=== PATIENT | female | born 1975 | race Caucasian/White ===

== ENCOUNTER 2016-10-22 09:00 | Inpatient (IN) | payer OTHER ==
--- NOTE | ~2016-10-22 | PA ---
Unit #: [id number] #: [id number] Patient: ROBERT DOOLEY [id number] [place] [address] [id number] MR#: [id number] NAME: ROBERT DOOLEY ROOM: [facility]6 Age: 40 Sex: F Admission Date: 10/22/2016 : 1975 Date of Assessment: Attending Physician: Bryson Willoughby M.D. Admitting Physician: Bryson Willoughby M.D. Primary Care Physician: Primary Care Physician No PSYCHIATRIC ASSESSMENT DATE OF SERVICE 10/22/2016. IDENTIFYING DATA Ms. Dooley is a 40-year-old single white female, who is a resident of [place], [place], and was transferred to us from [facility] on a 72 hours hold. CHIEF COMPLAINT "I'm not fucking answering anything, get that fucking straight." HISTORY OF PRESENT ILLNESS Ms. Dooley is a 40-year-old white female, who was brought to the hospital emergency room by her mother. Upon presentation, she was seen to be extremely angry and agitated and was yelling and cursing obscenities and continued to yank IV lines out of her body and bit a staff and threatening staff repeatedly and was placed in restraints. The patient's mood was seen to be unstable and family reports that her mood has been unstable for months and the patient has been mentally confused and will say things that does not make much sense. The patient's son is scared of her and stated that he does not know who she is right now. The patient was brought in yesterday and was unresponsive all day, and upon walking in the ER, the patient was aggressive verbally and physically and was not cooperative and apparently had overdosed on Neurontin, but it is not clear if this was unintentional or not. The patient was medically cleared and then transferred to us. Upon presentation here on to the unit, the patient was once again seen to be agitated, irritable, and taking her clothes off and staying naked and refusing to follow any directions and not being redirectable and appeared to be out of touch with reality and overall was seen to be acutely psychotic and a poor historian. SUBSTANCE ABUSE HISTORY The patient was unable to disclose any information about her substance abuse and there is a strong suspicion about the patient using synthetic substances. PAST PSYCHIATRIC HISTORY The patient has not had any prior inpatient psychiatric hospitalization. Review of the medical records indicate currently she is not active in any treatment program, is not seeing a psychiatrist, and is not taking any psychotropic medications. PAST MEDICAL HISTORY Unit #: [id number] #: [id number] Patient: ROBERT DOOLEY Hypertension and diabetes mellitus. ALLERGIES Ativan. PERSONAL AND SOCIAL HISTORY A 40-year-old white female, who reports that she lives at home with her boyfriend and has fairly decent social support system. MENTAL STATUS EXAMINATION Middle-aged white female, who was casually dressed with fair personal hygiene, appears to be in no acute distress or discomfort. She was awake and alert on interaction with intact orientation to time, place, and person. Her mood was anxious and depressed with a congruent affect. Her speech was pressured and tangential. Her thought processes were disorganized with some looseness of associations and paranoid ideations and delusional behavior. Her insight and judgment remain significantly impaired. DIAGNOSTIC IMPRESSION Psychiatric: Schizoaffective disorder, bipolar type, most recent episode manic with psychosis. Medical: None. Stressors: Moderate psychosocial stressors. TREATMENT PLAN 1. The patient has presented with a history of mood disorder and psychosis and has been decompensating and will need inpatient hospitalization for safety and stabilization. We will start her back on her home medications and we will adjust the medications and monitor response. 2. Supportive therapy was provided to the patient. 3. Safe, structured, and nourishing environment will be provided. ESTIMATED LENGTH OF STAY 5 to 7 days. ABILITY TO HELP SELF Limited. WILLINGNESS TO HELP SELF The patient appears to be willing to help self. STRENGTHS 1. Communicative. 2. Cooperative. PROBLEMS 1. Chronic dysphoric symptoms. 2. Poor social support system. DISCHARGE CRITERIA This will be contingent upon the patient's ability to show resolution of her dominique and psychosis and her ability to stay safe to herself, particularly after discharge from the hospital. Dictated by... Unit #: [id number] #: [id number] Patient: ROBERT DOOLEY Reid Cabrera/prerna TD: 10/23/2016 13:48 JOB #: [id number] PSYCHIATRIC ASSESSMENT Page 1 of 1 X Bryson Willoughby MD PSYCHIATRIC ASSESSMENT
--- NOTE | ~2016-10-22 | HP ---
Unit #: [id number] #: [id number] Patient: KERI APONTE [id number] [place] [address] [id number] I MR#: [id number] NAME: KERI APONTE ROOM: [facility]6 Age: 40 Sex: F Admission Date: 10/22/2016 : 1975 Attending Physician: Bryson Willoughby M.D. Admitting Physician: Bryson Willoughby M.D. Primary Care Physician: Primary Care Physician No HISTORY AND PHYSICAL Keri is a 40 year old who was admitted and discharged within the first 24 hours. She was not seen for an H and P. Dictated by... Radha Norwood P.A.-C. for Reid Coronel/daisy TD: 10/23/2016 20:45 JOB #: [id number] HISTORY AND PHYSICAL Page 1 of 1 X Radha Norwood HISTORY AND PHYSICAL
--- NOTE | ~2016-10-22 | PN ---
Unit #: [id number] #: [id number] Patient: ROBERT DOOLEY [id number] [facility] [address] [place] [address] [id number] I MR#: [id number] NAME: ROBERT DOOLEY ROOM: [facility]6 Age: 40 Sex: F Admission Date: 10/22/2016 : 1975 Attending Physician: Bryson Willoughby M.D. Admitting Physician: Bryson Willoughby M.D. Primary Care Physician: Primary Care Physician Mayelin PATTERSON PROGRESS NOTES DATE 10/23/2016 DISCUSSION Ms. Dooley is a 40-year-old white female with mood disorder and psychosis who was seen today and chart was reviewed and case was discussed with the staff. She has been anxious, withdrawn and was sitting naked in her bed and staff report that she has been naked all night long and has been yelling and screaming, cursing, refusing to be redirected and refusing to put her clothes on. Meanwhile, she has not shown any physical aggression. MENTAL STATUS EXAMINATION Middle-aged white female who was casually dressed with marginal personal hygiene and appears to be in no acute distress or discomfort. She was awake and alert with impaired attention and concentration. Her mood was anxious with congruent affect. Her speech is slow and tangential. Her thought processes were disorganized with some looseness of associations and flight of ideas and paranoid ideations and delusional behavior. Her insight and judgement remains significantly impaired. TREATMENT PLAN 1. Will continue on current medications and treatment protocol. Will monitor her response to the medications and make further adjustments as needed. 2. Will continue to follow up. Dictated by... Reid Cabrera/daisy TD: 10/23/2016 20:46 JOB #: [id number] Unit #: [id number] #: [id number] Patient: ROBERT DOOLEYOLAYNIKA PROGRESS NOTES Page 1 of 1 X Bryson Willoughby MD PROGRESS NOTE
[2016-10-23] MEDS ORDERED: ZYPREXA PO (15:42)
[2016-10-23] MEDS ORDERED: NICOTINE1 EAC1 TOP (15:42)
[2016-10-23] MEDS ORDERED: LEVEMIR FL100 UNIT/1 SUBQ (15:42)
[2016-10-23] MEDS ORDERED: ATORVASTATIN CA10 MG PO (15:43)
[2016-10-23] MEDS ORDERED: NOVOLOG100 UNIT/1 (15:43)
[2016-10-23] MEDS ORDERED: BUSPAR5 M1 PO (15:43)
== END 2016-10-23 20:43 | DRG 885 ==
LOC: P1S 16:45
DX: F31.2 Bipolar disorder, current episode manic severe with psychotic features (principal)
CPT/HCPCS: 82947; J1200; J1630

== ENCOUNTER 2016-10-23 15:16 | Inpatient (IN) | payer OTHER ==
[~2016-10-23] VITALS: Ht 157.5 cm; Wt 61.0 kg
--- NOTE | ~2016-10-23 | CR63 ---
[facility] A Service of [facility] & [facility] RADIOLOGY TEXT RESULTS PATIENT: ROBERT APONTE LOCATION: C2A : [birth year] UNIT #: [id number] AGE: [address]: Mily Velarde MD SEX: F ORDER DR: [id number] [facility] [address] [place], [place] [address] [id number] I MR#: [id number] Acc #: [id number] NAME: ROBERT APONTE. : 1975 SEX: F STUDY DATE/TIME: 10/26/2016 8:00 UNIT: [facility] ROOM: 219 STUDY DESCRIPTION: CR Chest 2 View Attending Physician: Mily Velarde M.D. Ordering Physician: Luther Galvez M.D. Primary Care Physician: No Primary Care Physician MEDICAL IMAGING REPORT This report is preliminary unless electronic signature is present EXAM Chest 2 views dated 10/26/16 at 08:00 hours. COMPARISON Single view chest dated 10/25/2016. HISTORY Vomiting blood from Saturday. FINDINGS 2 views of the chest were obtained. Postoperative changes of CABG are noted with borderline size heart. Right subclavian approach PICC line catheter tip terminates at the level of SVC. Postoperative changes are noted in the region of the diaphragm, probably extrinsic to the chest and the abdomen. Correlate with history. There is improvement in the previously noted pleural effusion on the left with likely mild residual pleural fluid/thickening and associated adjacent atelectasis/infiltrate. Mild right sided pleural effusion/thickening noted the right lateral CP angle cannot be excluded. No pneumothorax. IMPRESSION 1. Improvement in the left-sided pleural effusion with residual mild fluid/pleural thickening is noted with adjacent atelectasis. 2. Mild right-sided pleural fluid/thickening is noted in the lateral right CP angle. 3. Postoperative cardiac changes are noted with right subclavian approach PICC line catheter with tip in SVC. Dictated by... Iona Pike M.D. THIS IS AN ELECTRONICALLY VERIFIED REPORT Iona Pike M.D. at 10/30/2016 2:44 PM [facility] A Service of [facility] & [facility] RADIOLOGY TEXT RESULTS PATIENT: ROBERT APONTE [facility]ATION[facility] [id number] [birth year] UNIT #: [id number] AGE: [address]: Mily Velarde MD SEX: F ORDER DR: GAUTAM/chucho TD: 10/26/2016 12:28 JOB #: [id number] MEDICAL IMAGING REPORT Page 1 of 1 COPY
--- NOTE | ~2016-10-23 | CO ---
Unit #: [id number] #: [id number] Patient: ROBERT DOOLEY [id number] [address] [address] [id number] I MR#: [id number] NAME: ROBERT DOOLEY. ROOM: [facility] Age: 40 Sex: F Admission Date: 10/23/2016 : 1975 Attending Physician: Mily Velarde M.D. Primary Care Physician: Primary Care Physician No Consultation Date: 10/24/2016 CONSULTATION REPORT REASON FOR CONSULTATION Hematemesis. HISTORY OF PRESENTING ILLNESS Ms. Dooley is a 40-year-old lady. She currently is unable to give much history because of mental status changes, possible related to psychosis and drug overdose. She has a history of coronary artery disease, hypertension, polysubstance abuse, also has a history of peptic ulcer disease. Per her mother yesterday, she had a bout of vomiting that contained coffee-ground material. Her mother is not aware of any other recent history of bleeding or other stomach issues. PAST MEDICAL HISTORY Significant for coronary artery disease, hypertension, polysubstance abuse, diabetes mellitus, peptic ulcer disease. MEDICATIONS Include Zyprexa, BuSpar, Lipitor, Novolin insulin. FAMILY HISTORY Coronary artery disease. SOCIAL HISTORY Smoker, history of alcohol. No history of drug abuse. ALLERGIES None. REVIEW OF SYSTEMS Unable to obtain. PHYSICAL EXAMINATION VITAL SIGNS: Currently stable; temperature 98.4, pulse 110, respirations 16, blood pressure 120/70. GENERAL: Opening eyes, but not responding to commands, nods a little bit. HEENT: Pupils equal and reactive. Sclerae anicteric. Oral mucosa moist. NECK: No JVD. No lymphadenopathy. CHEST: Clear to auscultation bilaterally. CARDIOVASCULAR: Regular rate rhythm. No murmurs. ABDOMEN: Soft, nontender, and nondistended. EXTREMITIES: Without clubbing, cyanosis, or edema. NEUROLOGICAL: Grossly intact. DIAGNOSTIC STUDIES Unit #: [id number] #: [id number] Patient: ROBERT DOOLEY LABORATORY RESULTS: Chemistry showed BUN and creatinine 32 and 1.7. Calcium at 7.7. Bilirubin of 1.3, AST and ALT normal, alkaline phosphatase of 144. Amylase and lipase are normal. Lactic acid at 3.6 yesterday. Hemoglobin of 9.6 dropped from 11 yesterday, white count elevated at 23,000, and platelet count 338. ASSESSMENT AND PLAN The patient with anemia of acute blood loss, possible upper gastrointestinal bleeding. We will continue with PPI b.i.d. intravenously. Watch hemoglobin and hematocrit and transfuse as necessary and plan on doing an upper endoscopy for further evaluation. Thank you, Dr. Velarde, for this interesting consult. We will follow along. Dictated by... Reid Marsh/prerna TD: 10/24/2016 21:28 JOB #: [id number] CONSULTATION REPORT Page 1 of 1 X Stiven Young MD X CONSULTATION REPORT
--- NOTE | ~2016-10-23 | EKG ---
PATIENT: ROBERT APONTE UNIT #: [id number] Ventricular Rate: 124 BPM Atrial Rate: 124 BPM P-R Interval: 128 ms QRS Duration: 76 ms Q-T Interval: 334 ms QTC Calculation(Bezet): 479 ms P [place]: 61 degrees Calculated R [place]: 77 degrees Calculated T [place]: 37 degrees Diagnosis Line: Sinus tachycardia Diagnosis Line: Left atrial enlargement Diagnosis Line: Cannot rule out Anterior infarct , age Diagnosis Line: undetermined Diagnosis Line: Abnormal ECG Diagnosis Line: No previous ECGs available Diagnosis Line: Confirmed by RK VARGAS MD ([id number]) on Diagnosis Line: 10/26/2016 10:47:45 AM INTERPRETING MD: ALICIA SANTACRUZ
--- NOTE | ~2016-10-23 | CR72 ---
[facility] A Service of [facility] & [facility] RADIOLOGY TEXT RESULTS PATIENT: ROBERT APONTE LOCATION: [place] [address] : [birth year] UNIT #: [id number] AGE: [address]: Mily Velarde MD SEX: F ORDER DR: [id number] [facility] [address] [place], [place] [address] [id number] I MR#: [id number] Acc #: [id number] NAME: ROBERT APONTE. : 1975 SEX: F STUDY DATE/TIME: 10/25/2016 5:51 UNIT: [facility] ROOM: [facility] STUDY DESCRIPTION: CR Chest Single View Portable Attending Physician: Mily Velarde M.D. Ordering Physician: Dipak Emmanuel M.D. Primary Care Physician: No Primary Care Physician MEDICAL IMAGING REPORT This report is preliminary unless electronic signature is present EXAM Portable chest INDICATION Mild congestion for 6 days. FINDINGS Comparison is made to prior exam from October 23, 2016. Cardiomegaly is present. This patient has some worsening alveolar and interstitial infiltrates throughout the left lung. Potentially, this could reflect some vascular congestion although pneumonia would be another consideration. There are also bilateral pleural effusions, left greater than right. No pneumothorax is seen. Right-sided PICC line extends in the superior vena cava. Patient is status post median sternotomy with coronary artery bypass grafting. Dictated by... Elke Romero M.D. THIS IS AN ELECTRONICALLY VERIFIED REPORT Elke Romero M.D. at 10/25/2016 2:43 PM AFF/df TD: 10/25/2016 11:21 JOB #: [id number] MEDICAL IMAGING REPORT Page 1 of 1 COPY
--- NOTE | ~2016-10-23 | CO ---
Unit #: [id number] #: [id number] Patient: KERI DOOLEY [id number] [address] [address] [id number] I MR#: [id number] NAME: KERI DOOLEY ROOM: 219 Age: 40 Sex: F Admission Date: 10/23/2016 : 1975 Attending Physician: Mily Velarde M.D. Primary Care Physician: Primary Care Physician No Consultation Date: 10/25/2016 CONSULTATION REPORT REASON FOR CONSULTATION Followup. DISCUSSION Ms. Keri Dooley is a 40-year-old female patient seen in CCU-2, bed 12, on 10/25/2016. The patient was alert and awake. The patient was admitted to [facility] and here due to aggression, confusion, and delirium. The patient was at [facility] for couple of days for behavior of bizarre, guarded paranoid. The patient was in diabetic ketoacidosis. The patient reports feeling better, dressed casually, lying comfortably in bed. The patient denied any thoughts of harming self or others or any psychotic symptom, currently on 72-hour hold. History of psychosis which is improved. The patient denied any use of any drugs or alcohol. The patient's vital patient's vital signs; temperature 98.1, pulse 85, respirations 18, and blood pressure 122/70, oxygen saturation 100%. PAST PSYCHIATRIC HISTORY Remarkable for history of previous admission at [facility], admitted on 10/22/2016 and transferred to [facility] on 10/23/2016 with diagnosis of schizoaffective disorder, bipolar type; psychosis, not otherwise specified. MEDICAL HISTORY Remarkable for history of coronary artery disease, hypertension, polysubstance abuse, hyperlipidemia, diabetes with insulin use. HOME MEDICATIONS Nicotine, Zyprexa, BuSpar, Lipitor, NovoLog insulin. FAMILY HISTORY AND SOCIAL HISTORY The patient reports that she has a good support system. No history of abuse. History of substance abuse. The patient's urine toxicology was negative. MENTAL STATUS EXAMINATION The patient's vital signs are stable. General appearance; the patient dressed casually, lying comfortably in bed. Attention span and concentration, fair. Speech, regular rate. Oriented in time, place, and person. Mood and affect, sad and dysphoric. Thought process, coherent. Thought content, the patient denied any suicidal or homicidal ideation, but guarded, paranoid, some confusion. Recent and remote memory, fair to slightly impaired. Language, fair. Fund of knowledge, fair to slightly impaired. Insight and judgment, fair to slightly impaired. Unit #: [id number] #: [id number] Patient: KERI DOOLEY DIAGNOSES Psychiatric: Major depressive disorder, recurrent, severe, F33.2; rule out schizoaffective disorder, bipolar type, F25.9; psychosis, not otherwise specified, F29.0; rule out substance abuse disorder; delirium, F05, resolved. Secondary diagnosis: Deferred. Medical diagnosis: Please refer to H and P. Stressors: Psychosocial stressors. ASSESSMENT/PLAN 1. Supportive psychotherapy and psychoeducation provided to the patient. 2. Educated about benefits and side effects of medication and course and prognosis of illness. 3. Advised to add Desyrel 50 mg at bedtime for sleep and Vistaril 25 mg t.i.d. for anxiety. We will continue to follow. If needed, consider further adjustment of medication and resuming her psychotropic medication. Once the patient is medically stable, consider [facility]. Please feel free to call if any questions telephone #[phone]. Dictated by... Reid Pickering/prerna TD: 10/26/2016 15:12 JOB #: [id number] CONSULTATION REPORT Page 1 of 1 X Sven Liu MD X CONSULTATION REPORT
--- NOTE | ~2016-10-23 | OR ---
Unit #: [id number] #: [id number] Patient: ROBERT APONTE [id number] [address] [address] [id number] I MR#: [id number] NAME: ROBERT APONTE. ROOM: 219 Date of Procedure: 10/25/2016 Admission Date: 10/23/2016 Surgeon: Stiven Young M.D. : 1975 Attending Physician: Mily Velarde M.D. OPERATIVE REPORT PROCEDURES PERFORMED EGD with biopsy. INDICATIONS FOR PROCEDURE The patient presented with hematemesis. Hemoglobin dropped from 11 to 9, undergoing evaluation with upper endoscopy. MEDICATIONS Monitored anesthesia. POSTOPERATIVE FINDINGS 1. Normal esophagus. 2. Mild gastritis. Biopsy was taken. 3. Normal duodenum and distal duodenum. 4. No ulcers, AVMs, or other bleeding lesions were seen. PLAN Continue with PPI therapy. Follow up on pathology report. DESCRIPTION OF PROCEDURE The patient was explained of the procedure, risks, and benefits along with risks and benefits of anesthesia. Endo team was brought to the ICU. Scope was passed down the mouth and esophagus, stomach, duodenum, and distal duodenum. Findings, as described. No ulcers or AVMs were seen. Gently, I pulled the scope out of the patient's mouth. She tolerated it well. No major complications were seen. Dictated by... Reid Marsh/prerna TD: 10/26/2016 05:24 JOB #: [id number] CC: Stiven Young M.D. Unit #: [id number] #: [id number] Patient: ROBERT APONTE OPERATIVE REPORT Page 1 of 1 X Stiven Young MD X PROCEDURE OPERATIVE NOTE
--- NOTE | ~2016-10-23 | CO ---
Unit #: [id number] #: [id number] Patient: ROBERT APONTE [id number] [address] [place], [place] [address] [id number] MR#: [id number] NAME: ROBERT APONTE ROOM: 219 Age: 40 Sex: F Admission Date: 10/23/2016 : 1975 Attending Physician: Mily Velarde M.D. Primary Care Physician: Primary Care Physician No Consultation Date: 10/24/2016 CONSULTATION REPORT REASON FOR CONSULTATION ICU. HISTORY OF PRESENT ILLNESS A 40-year-old female who has depression and polysubstance abuse, apparently had a Neurontin overdose, transferred to [facility]. There, she had some nausea and vomiting and presented here to [facility]. There was some question of hematemesis. When the patient presented here, she was found to have DKA. She is on insulin drip and now is in the intensive care unit. She is nonverbal. She obviously is awake and will communicate, particularly to family with nodding, but she would not participate in the interview process. PAST MEDICAL HISTORY Remarkable for coronary artery disease, status post CABG last year, hypertension, polysubstance abuse, hyperlipidemia, diabetes. MEDICATIONS At home nicotine patch, Zyprexa, BuSpar, Lipitor and insulin. FAMILY HISTORY Coronary artery disease. SOCIAL HISTORY Smokes a pack of cigarettes a day. Occasionally drinks alcohol. ALLERGIES No known medical allergies. REVIEW OF SYSTEMS Unobtainable. The family states she has no lung disease. PHYSICAL EXAMINATION GENERAL: Reveals a patient, who is comfortable on room air. VITAL SIGNS: She is afebrile, pulse 103, respiratory rate is 18, blood pressure 123/62. She is 5 feet 2 inches, 135 pounds. HEENT: Pupils are equal, round, and reactive to light. Sclerae anicteric. Head atraumatic. NECK: Supple. She has dentures in place. Apparently, she is edentulous. CHEST: She has crackles at the bases bilaterally. No wheeze or stridor. CARDIAC: Reveals regular rate and rhythm. No pathologic murmur, rub, or gallop. ABDOMEN: Soft and nontender. No hepatomegaly or rebound. EXTREMITIES: Reveal no clubbing, cyanosis, or edema. No calf tenderness. Unit #: [id number] #: [id number] Patient: ROBERT APONTE SKIN: Warm and dry without rash or diaphoresis. NEUROLOGIC: She did not cooperate with full neurologic exam. DIAGNOSTIC STUDIES LABORATORY RESULTS: Her BUN is 39, creatinine is 2.1. On admission, her creatinine was 2.4. Blood sugar was 732, now 436. Lactic acid is 3.6. BHOB is 8.69. Hemoglobin A1c is 9.9, beta HCG negative. Cardiac enzymes negative. White blood cell count is 23.4, hemoglobin 10.5, platelet count 338. Tox screen negative. Urinalysis, glucosuria. Blood cultures are pending. IMAGING STUDIES: Chest x-ray, possible left retrocardiac density. EKG; sinus tachycardia, nonspecific ST-T wave changes. IMPRESSION 1. Diabetic ketoacidosis. 2. Nausea, vomiting, possible aspiration. 3. Coronary artery disease, status post coronary artery bypass graft. 4. Acute kidney injury and possible chronic kidney disease. 5. Leukocytosis. 6. Anemia. 7. History of hypertension. 8. Limited database. PLAN Agree with DKA protocol. She currently is on antibiotics for possible aspiration. We will follow closely and if her leukocytosis, lactic acidosis, etc. do not improve, consider adding Staph coverage. Clinically, she is nontoxic. Thank you very much for allowing me to participate in the care of Ms. Valentino. Dictated by... Luther Galvez M.D. DUNIA/prerna TD: 10/25/2016 05:55 JOB #: [id number] CONSULTATION REPORT Page 1 of 1 X Luther Galvez MD X CONSULTATION REPORT
--- NOTE | ~2016-10-23 | CR72 ---
[facility] A Service of [facility] RADIOLOGY TEXT RESULTS PATIENT: ROBERT APONTE LOCATION: [place] [id number] : 73 UNIT #: [id number] AGE: [address]: Mily Velarde MD SEX: F ORDER DR: [id number] [facility] [address] [place], [place] [address] [id number] I MR#: [id number] Acc #: [id number] NAME: ROBERT APONTE : 1975 SEX: F STUDY DATE/TIME: 10/23/2016 20:07 UNIT: [facility] ROOM: [facility] STUDY DESCRIPTION: CR Chest Single View Portable Attending Physician: Mily Velarde M.D. Ordering Physician: Kelvin Dupont M.D. Primary Care Physician: Primary Care Physician No MEDICAL IMAGING REPORT This report is preliminary unless electronic signature is present EXAM Portable chest 10/23/2016 HISTORY 40-year-old female with congestion and hemoptysis for 4 days. Smoker. DKA. COMPARISON: Chest 07/01/2015 FINDINGS Frontal chest demonstrates mild bibasilar atelectasis/infiltrate. No large pleural effusions. No pneumothorax. Heart size and mediastinum within normal limits. Pulmonary vasculature is unremarkable. Median sternotomy wires. IMPRESSION Mild bibasilar atelectasis/infiltrate. Dictated by... Weston Dukes M.D. THIS IS AN ELECTRONICALLY VERIFIED REPORT Weston Dukes M.D. at 10/24/2016 3:17 PM RAY/addy TD: 10/24/2016 09:10 JOB #: [id number] MEDICAL IMAGING REPORT Page 1 of 1 COPY
--- NOTE | ~2016-10-23 | CT57 ---
[facility] A Service of [facility] RADIOLOGY TEXT RESULTS PATIENT: ROBERT APONTE LOCATION: [place] [address]12 : [birth year] UNIT #: [id number] AGE: [address]: Mily Velarde MD SEX: F ORDER DR: [id number] [place] [id number] [facility]. [place], [place] [address] [id number] I MR#: [id number] Acc #: [id number] NAME: ROBERT APONTE : 1975 SEX: F STUDY DATE/TIME: 10/24/2016 12:56 [facility] STUDY DESCRIPTION: CT Chest Wo Cont Attending Physician: Mily Velarde M.D. Ordering Physician: Mily Velarde M.D. Primary Care Physician: No Primary Care Physician MEDICAL IMAGING REPORT This report is preliminary unless electronic signature is present EXAM Chest CT no contrast, 10/24/2016. INDICATION Hemoptysis four times yesterday, confusion, combative since October 23. Drug abuse, coronary artery disease, diabetes. TECHNIQUE Noncontrast chest CT was performed. This CT exam was performed with one or more of the following radiation dose reduction techniques: automatic exposure control, adjustment of mA and/or kV according to patient size, and iterative reconstruction. COMPARISON 06/26/2015 FINDINGS Trace amount of pleural fluid present bilaterally. No pneumothorax. There has been significant interval improvement in overall aeration of the lungs and decrease in interstitial and alveolar infiltrates bilaterally. There are some faint areas of dependent airspace disease in both lung bases felt to be related primarily to atelectasis, although there may be faint infiltrate present in both lower lobes. There is faint atelectasis or faint infiltrate in the superior segment right lower lobe. No new suspicious pulmonary nodule. Included thyroid unremarkable. No pericardial effusion. No axillary adenopathy. Probable reactive mediastinal nodes. Old healed granulomatous disease. Aorta within normal limits. Included upper abdomen demonstrates granulomatous calcifications. No acute finding in the upper abdomen. No suspicious bone lesion. [facility] A Service of [facility] RADIOLOGY TEXT RESULTS PATIENT: ROBERT APONTE LOCATION: [address] : [birth year] UNIT #: [id number] AGE: [address]: Mily Velarde MD SEX: F ORDER DR: IMPRESSION 1. Significant interval improvement in the appearance of the chest. Trace pleural fluid and probable atelectasis in both lung bases. There may be faint areas of infiltrate in both lower lobes and the superior segment of the right lower lobe. No pneumothorax or new suspicious pulmonary nodule. 2. Old healed granulomatous disease and probable reactive mediastinal nodes. 3. Upper abdomen negative. Dictated by... Vipin Hinojosa M.D. THIS IS AN ELECTRONICALLY VERIFIED REPORT Vipin Hinojosa M.D. at 10/25/2016 7:30 AM GLADIS/jessie TD: 10/25/2016 01:24 JOB #: [id number] MEDICAL IMAGING REPORT Page 1 of 1 COPY
--- NOTE | ~2016-10-23 | CO ---
Unit #: [id number] #: [id number] Patient: ROBERT APONTE [id number] [address] [address] [id number] I MR#: [id number] NAME: ROBERT APONTE. ROOM: 219 Age: 40 Sex: F Admission Date: 10/23/2016 : 1975 Attending Physician: Mily Velarde M.D. Primary Care Physician: Primary Care Physician No Consultation Date: 10/24/2016 CONSULTATION REPORT REASON FOR CONSULT Management of diabetic ketoacidosis. HISTORY OF PRESENT ILLNESS This is a 40-year-old female with history of multiple medical problems including type 1 diabetes mellitus with insulin dependence, who was initially brought into the emergency room, a lady obese with abdominal pain and sugars are up 732. Initially, she was seen at [facility] with unspecified psychosis. Concerns were raised for gabapentin overdose. She was transferred to the [facility] last night. The patient had hematemesis and diabetic ketoacidosis. She was transferred to [facility] for further management. PAST MEDICAL HISTORY Type 1 diabetes mellitus, polysubstance abuse, hyperlipidemia, hypertension, and coronary artery disease. PAST SURGICAL HISTORY None. HOME MEDICATION Insulin is at unknown doses. Other medications include nicotine patch, Zyprexa, BuSpar, and Lipitor. Currently, the patient is on insulin drip and antibiotic Zosyn. FAMILY HISTORY Coronary artery disease. SOCIAL HISTORY Smokes cigarettes a pack per day. Drinks alcohol. Denies illicit drugs. ALLERGIES None. REVIEW OF SYSTEMS A 10-point review of system is completed. The patient is depressed. The patient looks in very depressed mood and confused. Denies any fever or chills. PHYSICAL EXAMINATION GENERAL: She is lying comfortably, in no acute distress. VITAL SIGNS: Temp 98.5, pulse 99, respirations 16, and blood pressure 138/71. HEENT: EOMI. Pupils equally reactive to light. Unit #: [id number] #: [id number] Patient: ROBERT APONTE NECK: Supple. No thyromegaly noted. CHEST: Good air entry. CVS: Regular rhythm. No murmurs. ABDOMEN: Soft and nontender. Bowel sounds positive. EXTREMITIES: No edema or ulcers are noted. LABORATORY DATA On admission, glucose was 732, BUN 37, creatinine 2.4, sodium 140, potassium 4.3, chloride 101, and CO2 of 12 on admission with positive lactic acid of 3.6 and positive ketones. A1c of 9.9. ASSESSMENT 1. Diabetic ketoacidosis, most likely due to the poor compliance with medicines and insulin. 2. Acute kidney injury, which is improved. Creatinine has improved from 2.4 to 1.7 today. 3. Hypernatremia, improving. 4. Lactic acidosis. PLAN We will continue insulin drip at this time. Change IV fluids to D5 half-normal saline at 150 mL an hour. Monitor electrolytes, magnesium, potassium, and phosphorus closely. Monitor renal function closely. Accu-Cheks will be monitored every hourly and insulin drip will be adjusted per protocol. We will continue to follow the patient for further management. Dictated by... Reid Zelaya/prerna TD: 10/25/2016 15:28 JOB #: [id number] CONSULTATION REPORT Page 1 of 1 X Melita Boone MD X CONSULTATION REPORT
--- NOTE | ~2016-10-23 | XA166 ---
[facility] A Service of [facility] RADIOLOGY TEXT RESULTS PATIENT: ROBERT APONTE LOCATION: [address] : [birth year] UNIT #: [id number] AGE: [address]: Mily Velarde MD SEX: F ORDER DR: [id number] [place] [id number] [facility]. [place], [place] [address] [id number] I MR#: [id number] Acc #: [id number] NAME: ROBERT APONTE : 1975 SEX: F STUDY DATE/TIME: 10/24/2016 16:35 UNIT: [facility] ROOM: [facility] STUDY DESCRIPTION: XA PICC Line Placement WO Port Attending Physician: Mily Velarde M.D. Ordering Physician: Mily Velarde M.D. Primary Care Physician: Primary Care Physician No MEDICAL IMAGING REPORT This report is preliminary unless electronic signature is present EXAM Right-sided PICC line placement INDICATIONS Need for IV access in a patient with DKA PRE-PROCEDURE The procedure was explained to the patient and/or patient loss prevention representative including risks, benefits, potential complications and potential for alternative forms of treatment. Informed consent was obtained, and prior to initiating the procedure a formal timeout procedure was performed. PROCEDURE Using full standard sterile barrier technique, including caps, gowns, gloves, masks, as well as sterile skin preparation and standard sterile draping, the right arm was prepped and draped in the usual fashion, and real-time sterile ultrasound guidance was used to localize an arm vein and to confirm vessel patency. A hard copy ultrasound image was recorded. After local anesthesia with 1% Xylocaine, the vein was punctured using real-time sterile ultrasound guidance, and an 0.018 guidewire was advanced into the superior vena cava, using fluoroscopic guidance. A 5 Greenlandic dual-lumen PICC was then measured and deployed with the tip positioned in the superior vena cava. The position of the line was documented with a radiographic image. The line was secured in place with an adhesive dressing and an antibiotic patch was applied. Total fluoro time was 0.1 minutes. AK was 1 mGy. IMPRESSION Successful placement of a 5 Greenlandic dual lumen PowerPICC via the right arm under ultrasound and fluoroscopic guidance. The tip of the PICC is in good position in the superior vena cava. [facility] A Service of [facility] RADIOLOGY TEXT RESULTS PATIENT: ROBERT APONTE LOCATION: [address] : [birth year] UNIT #: [id number] AGE: [address]: Mily Velarde MD SEX: F ORDER DR: Dictated by... Elke Romero M.D. THIS IS AN ELECTRONICALLY VERIFIED REPORT Elke Romero M.D. at 10/25/2016 2:44 PM AFF/rnnasreen TD: 10/25/2016 13:12 JOB #: [id number] MEDICAL IMAGING REPORT Page 1 of 1 COPY
--- NOTE | ~2016-10-23 | CT71 ---
[facility] A Service of [facility] RADIOLOGY TEXT RESULTS PATIENT: ROBERT APONTE LOCATION: C2A : [birth year] UNIT #: [id number] AGE: [address]: Mily Velarde MD SEX: F ORDER DR: [id number] [facility] [address] [facility]. [place], [place] [address] [id number] I MR#: [id number] Acc #: [id number] NAME: ROBERT APONTE. : 1975 SEX: F STUDY DATE/TIME: 10/24/2016 12:53 UNIT: [facility] ROOM: [facility] STUDY DESCRIPTION: CT Head Wo Contrast Attending Physician: Mily Velarde M.D. Ordering Physician: Mily Velarde M.D. Primary Care Physician: No Primary Care Physician MEDICAL IMAGING REPORT This report is preliminary unless electronic signature is present EXAM CT head, 10/24/2016. HISTORY Hemoptysis x4 yesterday. Confusion, combative since 10/23/2016. TECHNIQUE CT head performed skull base through vertex without intravenous contrast. This CT exam was performed with one or more of the following radiation dose reduction techniques: automatic exposure control, adjustment of mA and/or kV according to patient size, and iterative reconstruction. COMPARISON STUDIES No comparisons. FINDINGS Streak artifact from ear jewelry which could not be removed. Brainstem unremarkable. Cerebellum and cerebral hemispheres show normal orellana matter-white matter differentiation. No hemorrhage. No evidence of acute cortical ischemia. The midline structures are nondisplaced and the basal ganglia are intact. The ventricles, cisterns, and sulci are normal in size and contour. There is no intra or extraaxial mass effect or abnormal intracranial fluid collection. The intraorbital soft tissues are unremarkable in visualized extent. Visualized paranasal sinuses and mastoid air cells are clear. IMPRESSION The brain appears normal. If patient has ongoing neurologic symptoms, consider followup imaging. [facility] A Service [facility] RADIOLOGY TEXT RESULTS PATIENT: ROBERT APONTE LOCATION: C2A : [birth year] UNIT #: [id number] AGE: [address]: Mily Velarde MD SEX: F ORDER DR: Dictated by... J Carlos Arzola M.D. THIS IS AN ELECTRONICALLY VERIFIED REPORT J Carlos Arzola M.D. at 10/25/2016 7:30 PM THERESA/jessie TD: 10/24/2016 22:20 JOB #: [id number] MEDICAL IMAGING REPORT Page 1 of 1 COPY
--- NOTE | ~2016-10-23 | A ---
[facility] Nutrition Therapy DATE: 10/24/16 Patient: ROBERT APONTE Physician: CLIFTON Address: [address] [place] [address] Room/Bed: [address], Zip: [place] [address] Admit Date: 10/23/16 Date of : [birth year] Height: 5 2 Weight: 135 61.5 NUTRITIONAL ASSESSMENT: REASON: NPO IN ICU ASSESSMENT, ALSO SEEN FOR DX PT IS 40 Y.O. FEMALE ADMITTED FOR SPITTING UP BLOOD, DKA, ALICIA, ABD PAIN PMH: HTN, CAD S/P CABG, HLD, POLYSUBSTANCE ABUSE, DM W/INSULIN USE, PSYCHOSIS Anthropometrics: 5'2", WT: 130# (59 KG), BMI: 23.8 Labs: GLU: 436, BUN: 39, CREAT: 2.1, CA++:7.6, A1c: 9.9, GFR: 28.3 Meds: PROTONIX, ZOYSN, LIPITOR, NACL, D5% I/O & Bowel function: NOT AVAILABLE AT THIS TIME Skin Integrity: NO KNOWN SKIN ISSUES Estimated Nutrition Needs: INCREASED NEEDS 2' CURRENT CONDITION Assessment: CHART REVIEWED AND EVENTS NOTED. PT SEEN FOR NPO IN ICU + DX. PT SLEEPY/LETHARGIC AT TIME OF VISIT. RD ATTEMPTED TO COMMUNICATE W/PT BUT UNSUCCESSFUL. PER RN AND CHART, PT NOTED TO BE CONFUSED AND DISORIENTED THIS AM. PT CURRENTLY ON DKA PROTOCOL (NPO). PT WAS TRANSFERRED TO ICU FROM [facility] FOR ABOVE DX. RD LEFT WRITTEN CC DIET EDUCATION AT BEDSIDE. RD TO FOLLOW ON EDUCATION NEEDS. SEE RECOMMENDATIONS BELOW. Dx: IMPAIRED GLYCEMIC CONTROL R/T PMH, CURRENT DIAGNOSIS AEB ELEVATED BLOOD SUGAR LEVELS, A1c OF 9.9. 2. ALTERED NUTRIENT NEEDS R/T CURRENT DIAGNOSIS, CURRENT CLINICAL CONDITION AEB NPO STATUS. Intervention: 1. NPO Monitoring, Evaluation and Goals: 1. ORAL INTAKE; ADVANCE DIET AND CONSUME/TOLERATE >50% OF MEALS 2. WEIGHTS; PROMOTE WEIGHT MAINTENANCE 3. LABS; WNL: GLU, BUN, CREAT MONITOR: PER PROTOCOL, CRITERIA TO DETERMINE IF GOALS ARE MET Recommendations: [facility] Nutrition Therapy DATE: 10/24/16 Patient: ROBERT APONTE Physician: CLIFTON Address: [address] [place] [address] Room/Bed: [address], Zip: [place] [address] Admit Date: 10/23/16 Date of : [birth year] Height: 5 2 Weight: 135 61.5 1. ONCE MEDICALLY FEASIBLE, ADVANCE DIET INDICATED TO CC 2'DX, PMH 2. ORDER GLUCERNA SHAKES BID, IF PO INTAKE <50%, FOR SUPPLEMENTAL NUTRITION 3. RD TO FOLLOW-UP ON EDUCATION NEEDS. CONSULT RD IF FURTHER DIET EDUCATION REQUESTED/NEEDED RD WILL F/U PER PROTOCOL PT IS MILDLY COMPROMISED Respectfully, TYLER LUCERO MS, RD, LD [employer] [facility] cc: client file
--- NOTE | ~2016-10-23 | DS ---
Unit #: [id number] #: [id number] Patient: ROBERT APONTE [id number] [facility] [address] [facility]. [place], [place] [address] [id number] I MR#: [id number] NAME: ROBERT APONTE. ROOM: 219 Age: 40 Sex: F Admission Date: 10/23/2016 : 1975 Discharge Date: 10/26/2016 Attending Physician: Mily Velarde M.D. Primary Care Physician: No Primary Care Physician DISCHARGE SUMMARY Please refer to H and P for complete details. Essentially patient was at [facility] secondary to underlying mental illness and/or psychiatric issues. Apparently she had overdosed on gabapentin, however, details were not really clear. There was a question if she had suicidal ideation. While there at [facility] her blood sugars remained elevated. Last recheck was 732. She also developed intractable abdominal pain, as well as questionable blood and emesis. She has subsequently transferred to [facility] for further evaluation. Initially she was noted to be in acute DKA. Secondary to DKA she was placed on DK protocol and in the ICU for routine care. Dr. Galvez was consulted as [employer]. She was placed on IV Zosyn for possible underlying aspiration secondary to her recurrent emesis episode. She underwent a CT chest noncontrast on 10/24/2016 and did reveal trace pleural fluid, as well as probable atelectasis. There were faint areas of infiltrate, which were questionable as well. She was transitioned to p.o. Augmentin. From a respiratory standpoint she appeared clinically stable. In regards to her DKA, Dr. Boone was consulted. She was maintained on DKA protocol initially, which was transitioned to Levemir 10 units subcu b.i.d., as well as NovoLog 5 units t.i.d. with meals. From a medical standpoint she is clinically stable. Her sodium was mildly elevated at this morning at 147. Her potassium is 3.6. Her BNP is 546 today. Her CBC shows a hemoglobin of 9.4, white count of 5.9. It should be noted she does have a prior history of substance abuse and/or IV drug abuse. She states that she had not used in quite some time. She also has a prior history of diabetes poorly controlled. Her hemoglobin A1c this hospital admission was 9.9%. Her urine tox screen on day of admission was negative. She had a prior history of coronary artery disease with a prior history of CABG, as well as heart failure history. I do not have a recent echo for comparison; however, at the present time, if patient does appear to be euvolemic and she appears clinically stable to be discharged, Dr. Liu, as well as [facility] will be evaluating the patient later this afternoon for possible transition back to [facility] for ongoing care versus discharge home. Overall her prognosis is guarded at best. Her chance of readmission is significantly elevated secondary to Unit #: [id number] #: [id number] Patient: ROBERT APONTE longstanding history of noncompliance. Also noted that her boyfriend whom she lives with at home is a known IV drug abuser. She has been counseled extensively on the harms of IV drugs, as well as substance abuse, to which she expressed understanding. FINAL DISCHARGE DIAGNOSES 1. Diabetic ketoacidosis now resolved. 2. Diabetes. 3. Insulin dependent, poorly controlled. 4. Hemoglobin A1c 9.9%. 5. Coronary artery disease. 6. Prior history of coronary artery bypass graft. 7. Polysubstance abuse history. 8. Hypertension. 9. Hyperlipidemia. 10. Prior history of heart failure, details not clear. 11. Appears euvolemic at time of discharge. 12. Longstanding history of noncompliance with medications. 13. Possible suicidal ideation/Neurontin overdose. FINAL DISCHARGE MEDICATIONS 1. Zofran 8 mg t.i.d. p.r.n. 2. Nicotine patch topical daily. 3. Lopressor 25 mg 1/2 tablet p.o. b.i.d. 4. Colace 100 mg p.o. b.i.d. p.r.n. 5. Lasix 40 mg p.o. daily. 6. Lipitor 10 mg p.o. q.h.s. 7. NovoLog 5 units t.i.d. with meals. 8. Levemir 10 units subcu b.i.d. 9. Aspirin 81 mg p.o. daily. 10. Plavix 75 mg p.o. daily. 11. Protonix 40 mg p.o. daily. 12. Zyprexa 10 mg p.o. b.i.d. 13. Klor-Con 10 mEq p.o. b.i.d. DISCHARGE CONDITION Stable. DISCHARGE DISPOSITION To be determined by [facility]. Please noted the following addendum: Secondary to emesis episodes, as well as questionable blood, patient underwent GI consultation by Dr. Young, ultimately undergoing upper GI endoscopy as well as biopsy. It did show mild gastritis, no acute bleeding which was noted. Biopsies are currently pending. Dictated by... Reid Coronel/vin TD: 10/26/2016 10:29 JOB #: [id number] Unit #: [id number] #: [id number] Patient: ROBERT APONTE DISCHARGE SUMMARY Page 1 of 1 X Mily Velarde MD X DISCHARGE SUMMARY
--- NOTE | ~2016-10-23 | HP ---
Unit #: [id number] #: [id number] Patient: ROBERT APONTE [id number] [address] [address] [id number] I MR#: [id number] NAME: ROBERT APONTE ROOM: 39771 Age: 40 Sex: F Admission Date: 10/23/2016 : 1975 Attending Physician: Karla Rendon M.D. HISTORY AND PHYSICAL CHIEF COMPLAINT Abdominal pain. HISTORY OF PRESENT ILLNESS The patient is a 40-year-old female with a history of coronary artery disease, status post CABG, hypertension, and polysubstance abuse, brought to the emergency room from [facility] with abdominal pain and sugars running 732. The patient was seen at [facility] last night with unspecific psychosis. Patient was diagnosed with concern for gabapentin overdose with no suicidal ideation and messages noted. The patient was transferred to [facility] last night. The patient has had hematemesis x4 since this morning and complains of stomach pain. Patient has not had food since admission to [facility]. Patient is confused and disoriented to place and time and combative with staff. Patient was transferred to [facility] for the above reasons. Patient is confused and unable to provide any history, and history is obtained by speaking to the patient's mother at the bedside. The patient lives with her boyfriend and concerning for gabapentin overdose. The patient received Haldol and Zyprexa at [facility], and patient has received Geodon in the emergency room here for the combativeness. PAST MEDICAL HISTORY 1. Coronary artery disease. 2. Hypertension. 3. Polysubstance abuse. 4. Hyperlipidemia. 5. Diabetes with insulin use. PAST SURGICAL HISTORY None. HOME MEDICATIONS 1. Nicotine patch. 2. Zyprexa. 3. BuSpar. 4. Lipitor. 5. NovoLog insulin. FAMILY HISTORY Coronary artery disease. Unit #: [id number] #: [id number] Patient: ROBERT APONTE SOCIAL HISTORY Smokes cigarettes a pack a day and drinks alcohol occasionally. Denies any illicit drug abuse. ALLERGIES No known drug allergies. REVIEW OF SYSTEMS Unable to obtain as the patient is more confused and combative. PHYSICAL EXAMINATION GENERAL: Patient is lying in bed not in acute distress. VITAL SIGNS: Temperature 98.4, pulse 135, respiratory rate 18, blood pressure 119/71, and saturating 98% on room air. HEENT: Head atraumatic, normocephalic. Pupils equal, round, and reactive to light and accommodation. Extraocular movements are intact. Dry mucous membranes. NECK: Supple. LUNGS: Decreased air entry at the bases. HEART: Regular rate and rhythm. ABDOMEN: Soft. Positive bowel sounds. EXTREMITIES: No cyanosis. No clubbing. NEUROLOGIC: Awake. No gross focal motor deficit. PSYCHIATRIC: Combativeness and confused. DIAGNOSTIC STUDIES LABORATORY: ABG with pH of 7.31, PCO2 of 25, PO2 of 40, saturation 72.3. Beta hCG is negative. Troponin less than 0.05. Lactic acid 3.6. WBC 21.1, hemoglobin 11.1, platelets 336,000. Sodium 140, potassium 4.3, chloride 101, bicarb 12, glucose 732, BUN 37, creatinine 2.4, AST 26, ALT 21, alkaline phosphatase 144. Amylase 14. Beta hydroxybutyrate 8.69. On patient's record from [facility], urine tox is negative and UA is negative. ASSESSMENT 1. Diabetic ketoacidosis. 2. Acute kidney injury. 3. Sepsis. 4. Psychosis. PLAN Admit the patient to inpatient to ICU. Patient will be on the sepsis protocol with fluid replacement and continue with DKA protocol. Will have Endocrine consult, Critical Care consult, and psych consult. Replace the electrolytes per protocol. Check the chest x-ray and UA to rule out infectious etiology for sepsis, likely hypovolemic with DKA, and further recommendations will follow. Dictated by Reid Wells TD: 10/23/2016 21:52 JOB #: [id number] Unit #: [id number] #: [id number] Patient: ROBERT APONTE HISTORY AND PHYSICAL Page 1 of 1 X KARLA RENDON MD HISTORY AND PHYSICAL
[2016-10-23] MEDS ORDERED: ZYPREXA PO (15:42)
[2016-10-23] MEDS ORDERED: LEVEMIR FL100 UNIT/1 SUBQ (15:42)
[2016-10-23] MEDS ORDERED: NICOTINE1 EAC1 TOP (15:42)
[2016-10-23] MEDS ORDERED: NOVOLOG100 UNIT/1 (15:43)
[2016-10-23] MEDS ORDERED: BUSPAR5 M1 PO (15:43)
[2016-10-23] MEDS ORDERED: ATORVASTATIN CA10 MG PO (15:43)
[2016-10-23 16:36] LABS: ARTERIAL BLD GAS O2 SATURATION 72.3 % (90.0-100.0); ARTERIAL BLOOD GAS HCO3 13.2 mmol/L; ARTERIAL BLOOD GAS MET HB 1.1 %sat (0.0-2.0); ARTERIAL BLOOD GAS PCO2 25.7 mmHg (35.0-45.0); ARTERIAL BLOOD GAS PO2 40.2 mmHg (80.0-100); ARTERIAL BLOOD GAS pH 7.318 (7.350-7.450); ARTERIAL DRAW? NO
[2016-10-23 16:47] LABS: BASOPHIL% 0.2 % (0-2.5); HEMATOCRIT 35.2 % (35.0-45.0); HEMOGLOBIN 11.1 gm/dL (12.0-16.0); LYMPHOCYTE# 1.3 X10e3 (1.0-3.5); LYMPHOCYTE% 6.1 % (17.0-45.0); MEAN CELL VOLUME 89.9 FL (83-96); MEAN CORPUSCULAR HEMOGLOBIN 28.3 PG (28-34); MEAN CORPUSCULAR HGB CONC 31.5 g/dL (30-36); MONOCYTE# 1.1 X10e3 (0-1.0); MONOCYTE% 5.1 % (3.0-12.0); NEUTROPHIL# 18.7 X10e3 (1.5-7.1); NEUTROPHIL% 88.6 % (40-75); PLATELET COUNT 336 X10e3 (140-420); RED BLOOD COUNT 3.91 X10e (3.90-5.30); RED CELL DISTRIBUTION WIDTH 15.5 % (11.0-15.5); WHITE BLOOD COUNT 21.1 X10e3 (4.0-10.5)
[2016-10-23 16:51] LABS: DIFF IND YES
[2016-10-23 16:59] LABS: POC - CKMB 7.1 ng/mL (0.0-7.9); POC - TROPONIN <0.05 ng/mL (<=0.05)
[2016-10-23 17:19] LABS: PLATELET ESTIMATE NORMAL (NORMAL)
[2016-10-23 17:37] LABS: ALBUMIN SERUM 4.3 g/dL (3.5-5.0); BILIRUBIN, DIRECT 0.1 mg/dL (0.0-0.2); BILIRUBIN,INDIRECT 1.3 mg/dL (0.0-0.9); BILIRUBIN,TOTAL 1.4 mg/dL (0.2-2.0); BUN/CREATININE RATIO 15.41; CALCIUM SERUM 8.8 mg/dL (8.4-10.2); CREATININE SERUM 2.4 mg/dL (0.6-1.4); GLOM FILT RATE Estimated 24.1 mL/min (>60); POTASSIUM 4.3 mmol/L (3.5-5.1); PROTEIN TOTAL SERUM 7.8 g/dL (6.0-8.3)
[2016-10-23 18:22] LABS: BETA HYDROXYBUTYRATE 8.69 MMOL/L (0.02-0.27)
[2016-10-23 19:54] LABS: URINE SOURCE CATH
[2016-10-23 20:06] LABS: URINE APPEARANCE CLEAR; URINE BILIRUBIN NEG (NEG); URINE BLOOD NEG (NEG); URINE COLOR YELLOW; URINE GLUCOSE >1000 MG/DL (NEG); URINE KETONE 2+ (NEG); URINE LEUKOCYTE ESTERASE NEG (NEG); URINE NITRATE NEG (NEG); URINE PROTEIN NEG (NEG); URINE SPECIFIC GRAVITY 1.026 (1.003-1.035); URINE UROBILINOGEN 0.2 MG/DL (NEG)
[2016-10-23 20:23] LABS: CULTURE INDICATED? NO
[2016-10-23 20:57] LABS: AMPHETAMINE NEG (NEG); BARBITURATES NEG (NEG); BENZODIAZEPINES NEG (NEG); COCAINE NEG (NEG); MARIJUANA NEG (NEG); OPIATES NEG (NEG); TRICYCLIC ANTIDEPRESSANTS NEG (NEG); U METHADONE NEG (NEG)
[2016-10-24 01:58] LABS: CALCIUM SERUM 8.3 mg/dL (8.4-10.2); POTASSIUM 3.9 mmol/L (3.5-5.1)
[2016-10-24 02:08] LABS: BASOPHIL# 0.1 X10e3 (0-0.3); BASOPHIL% 0.2 % (0-2.5); HEMATOCRIT 33.2 % (35.0-45.0); HEMOGLOBIN 10.5 gm/dL (12.0-16.0); LYMPHOCYTE# 1.9 X10e3 (1.0-3.5); MEAN CORPUSCULAR HEMOGLOBIN 27.3 PG (28-34); MEAN CORPUSCULAR HGB CONC 31.7 g/dL (30-36); MEAN PLATELET VOLUME 8.4 FL (6.5-11.5); MONOCYTE# 1.6 X10e3 (0-1.0); MONOCYTE% 6.7 % (3.0-12.0); NEUTROPHIL# 19.9 X10e3 (1.5-7.1); NEUTROPHIL% 85.1 % (40-75); PLATELET COUNT 338 X10e3 (140-420); RED BLOOD COUNT 3.85 X10e (3.90-5.30); RED CELL DISTRIBUTION WIDTH 15.1 % (11.0-15.5); WHITE BLOOD COUNT 23.4 X10e3 (4.0-10.5)
[2016-10-24 02:09] LABS: DIFF IND NO; MEAN CELL VOLUME 86.3 FL (83-96)
[2016-10-24 07:03] LABS: BUN/CREATININE RATIO 18.57; CALCIUM SERUM 7.6 mg/dL (8.4-10.2); CREATININE SERUM 2.1 mg/dL (0.6-1.4); GLOM FILT RATE Estimated 28.3 mL/min (>60); POTASSIUM 3.9 mmol/L (3.5-5.1)
[2016-10-24 13:08] LABS: BUN/CREATININE RATIO 18.82; CALCIUM SERUM 7.7 mg/dL (8.4-10.2); CREATININE SERUM 1.7 mg/dL (0.6-1.4); GLOM FILT RATE Estimated 36.6 mL/min (>60); POTASSIUM 4.1 mmol/L (3.5-5.1)
[2016-10-24 15:17] LABS: HEMATOCRIT 30.3 % (35.0-45.0); HEMOGLOBIN 9.6 gm/dL (12.0-16.0)
[2016-10-24 18:56] LABS: BUN/CREATININE RATIO 21.66; CALCIUM SERUM 7.6 mg/dL (8.4-10.2); CREATININE SERUM 1.2 mg/dL (0.6-1.4); GLOM FILT RATE Estimated 55.7 mL/min (>60); PHOSPHOROUS 2.5 mg/dL (2.5-4.6)
[2016-10-24 18:57] LABS: POTASSIUM 2.9 mmol/L (3.5-5.1)
[2016-10-25 01:14] LABS: BUN/CREATININE RATIO 18.88; CALCIUM SERUM 7.6 mg/dL (8.4-10.2); CREATININE SERUM 0.9 mg/dL (0.6-1.4); GLOM FILT RATE Estimated 78.9 mL/min (>60); POTASSIUM 3.2 mmol/L (3.5-5.1)
[2016-10-25 05:25] LABS: BASOPHIL# 0.1 X10e3 (0-0.3); BASOPHIL% 0.4 % (0-2.5); EOSINOPHIL# 0.1 X10e3 (0-0.7); HEMATOCRIT 27.8 % (35.0-45.0); LYMPHOCYTE# 2.6 X10e3 (1.0-3.5); LYMPHOCYTE% 18.7 % (17.0-45.0); MEAN CELL VOLUME 85.9 FL (83-96); MEAN CORPUSCULAR HEMOGLOBIN 27.9 PG (28-34); MEAN CORPUSCULAR HGB CONC 32.5 g/dL (30-36); MEAN PLATELET VOLUME 8.1 FL (6.5-11.5); MONOCYTE# 0.8 X10e3 (0-1.0); MONOCYTE% 5.8 % (3.0-12.0); NEUTROPHIL# 10.3 X10e3 (1.5-7.1); NEUTROPHIL% 74.1 % (40-75); PLATELET COUNT 235 X10e3 (140-420); RED BLOOD COUNT 3.24 X10e (3.90-5.30); RED CELL DISTRIBUTION WIDTH 15.4 % (11.0-15.5); WHITE BLOOD COUNT 13.9 X10e3 (4.0-10.5)
[2016-10-25 05:44] LABS: DIFF IND NO
[2016-10-25 06:07] LABS: ALBUMIN SERUM 2.6 g/dL (3.5-5.0); BILIRUBIN,TOTAL 0.5 mg/dL (0.2-2.0); BUN/CREATININE RATIO 16.25; CALCIUM SERUM 7.8 mg/dL (8.4-10.2); CREATININE SERUM 0.8 mg/dL (0.6-1.4); POTASSIUM 3.1 mmol/L (3.5-5.1); PROTEIN TOTAL SERUM 5.2 g/dL (6.0-8.3)
[2016-10-25] MEDS ORDERED: DOCUSATE SODIU100 MG PO (21:32)
[2016-10-25] MEDS ORDERED: METOPROLOL TAR25 MG PO (21:32)
[2016-10-25] MEDS ORDERED: ASPIRIN81 MG PO (21:33)
[2016-10-25] MEDS ORDERED: LASIX PO (21:33)
[2016-10-25] MEDS ORDERED: CLOPIDOGREL75 MG PO (21:33)
[2016-10-25] MEDS ORDERED: POTASSIUM CHLO10 ME1 PO (21:34)
[2016-10-25] MEDS ORDERED: ZYRTEC10 M1 PO (21:35)
[2016-10-25] MEDS ORDERED: ZOFRAN ODT4 MG PO (21:36)
[2016-10-25] MEDS ORDERED: OMEPRAZOLE40 M1 PO (21:37)
[2016-10-25] MEDS ORDERED: GABAPENTIN300 M2 PO (21:38)
[2016-10-25] MEDS ORDERED: SINGULAIR PO (23:14)
[2016-10-25] MEDS ORDERED: BASAGLAR K100 UNIT/1 SUBQ (23:16)
[2016-10-26 07:31] LABS: BASOPHIL% 0.7 % (0-2.5); EOSINOPHIL# 0.3 X10e3 (0-0.7); EOSINOPHIL% 4.6 % (0.0-7.0); HEMATOCRIT 27.9 % (35.0-45.0); HEMOGLOBIN 9.4 gm/dL (12.0-16.0); LYMPHOCYTE# 1.9 X10e3 (1.0-3.5); LYMPHOCYTE% 31.4 % (17.0-45.0); MEAN CELL VOLUME 86.1 FL (83-96); MEAN CORPUSCULAR HEMOGLOBIN 28.9 PG (28-34); MEAN CORPUSCULAR HGB CONC 33.6 g/dL (30-36); MEAN PLATELET VOLUME 8.5 FL (6.5-11.5); MONOCYTE# 0.5 X10e3 (0-1.0); MONOCYTE% 9.2 % (3.0-12.0); NEUTROPHIL# 3.2 X10e3 (1.5-7.1); NEUTROPHIL% 54.1 % (40-75); PLATELET COUNT 204 X10e3 (140-420); RED BLOOD COUNT 3.23 X10e (3.90-5.30); RED CELL DISTRIBUTION WIDTH 15.6 % (11.0-15.5)
[2016-10-26 07:32] LABS: DIFF IND NO; WHITE BLOOD COUNT 5.9 X10e3 (4.0-10.5)
[2016-10-26 08:05] LABS: ALBUMIN SERUM 2.7 g/dL (3.5-5.0); BILIRUBIN,TOTAL 0.7 mg/dL (0.2-2.0); BUN/CREATININE RATIO 12.85; CALCIUM SERUM 8.3 mg/dL (8.4-10.2); CREATININE SERUM 0.7 mg/dL (0.6-1.4); GLOM FILT RATE Estimated 106.9 mL/min (>60); MAGNESIUM 1.9 mg/dL (1.6-3.0); POTASSIUM 3.6 mmol/L (3.5-5.1); PROTEIN TOTAL SERUM 5.1 g/dL (6.0-8.3)
[2016-10-26] MEDS ORDERED: NOVOLOG100 U/ML SUBQ (14:47)
[2016-10-26] MEDS ORDERED: AUGMENTIN PO (14:49)
[2016-10-26] MEDS ORDERED: ACETAMINOPHEN PO (14:49)
[2016-10-26] MEDS ORDERED: DESYREL50 MG PO (14:50)
[2016-10-26] MEDS ORDERED: VISTARIL PO (14:51)
[2016-10-26] MEDS ORDERED: PROTONIX PO (14:53)
[2016-10-26] MEDS ORDERED: K-DUR20 ME2 PO (14:55)
== END 2016-10-26 16:36 | disposition home or self-care (01) | DRG 871 ==
LOC: CED 15:16 → CICCU2 19:00 → CEDOF 19:00 → C2A 19:00 → CED 20:02 → CEDOF 20:02 → CICCU2 10-24 07:58 → CEDOF 10-24 07:58 → C2A 10-25 15:21
PROVIDERS: Emergency Medicine; Family Medicine; Internal Medicine
PROC: 02HV33Z Insertion of Infusion Device into Superior Vena Cava, Percutaneous Approach (ICD-10-PCS; 2016-10-24)
PROC: 4A02X4A Measurement of Cardiac Electrical Activity, Guidance, External Approach (ICD-10-PCS; 2016-10-24)
PROC: 0DB68ZX Excision of Stomach, Via Natural or Artificial Opening Endoscopic, Diagnostic (ICD-10-PCS; principal; 2016-10-25 08:30)
DX: A41.9 Sepsis, unspecified organism (principal); E10.10 Type 1 diabetes mellitus with ketoacidosis without coma; N17.9 Acute kidney failure, unspecified; K92.0 Hematemesis; E87.0 Hyperosmolality and hypernatremia; F33.2 Major depressive disorder, recurrent severe without psychotic features; R45.851 Suicidal ideations; F05 Delirium due to known physiological condition; D62 Acute posthemorrhagic anemia; Z79.4 Long term (current) use of insulin; I50.9 Heart failure, unspecified; I11.0 Hypertensive heart disease with heart failure; I25.10 Atherosclerotic heart disease of native coronary artery without angina pectoris; Z95.1 Presence of aortocoronary bypass graft; E78.5 Hyperlipidemia, unspecified; Z91.14 Patient's other noncompliance with medication regimen; F17.210 Nicotine dependence, cigarettes, uncomplicated; F29 Unspecified psychosis not due to a substance or known physiological condition; F25.0 Schizoaffective disorder, bipolar type
CPT/HCPCS: 70450; 71010; 71020; 71250; 76937; 77001; 80048; 80053; 80076; 80307; 81003; 82010; 82150; 82308; 82553; 82803; 82947; 83036; 83605; 83690; 83735; 83880; 84100; 84132; 84484; 84703; 85014; 85018; 85025; 86850; 86900; 86901; 87040; 88305; 88312; 93005; 93306; 94760; 96361; 96372; 96374; 99291; C1751; C9113; J1200; J1650; J1815; J2250; J2405; J2543; J3475; J3486